=== PATIENT | female | born 1970 | race Caucasian/White ===

== ENCOUNTER 2020-03-02 12:03 | Emergency (ER) | payer MEDICARE, OTHER ==
[~2020-03-02] VITALS: Ht 170.2 cm; Wt 101.4 kg
[2020-03-02 14:29] VITALS: BP 147/78
== END 2020-03-02 14:31 | disposition home or self-care (01) ==
LOC: ED 14:12
DX: J45.901 Unspecified asthma with (acute) exacerbation (principal); J20.9 Acute bronchitis, unspecified; R06.02 Shortness of breath
CPT/HCPCS: 71045; 93005; 99283

== ENCOUNTER 2020-06-13 17:35 | Emergency (ER) | payer MEDICARE ==
[~2020-06-13] VITALS: Ht 170.2 cm; Wt 110.3 kg
[2020-06-13] MEDS ORDERED: PROPARACAINE OPHTH 0.5%, 15ML ONE (18:12)
[2020-06-13] MEDS ORDERED: FLUORESCEIN OPHTHALMIC 1 MG STRIP ONE ×2 (18:12)
--- NOTE | 2020-06-13 18:15 | NUR ---
PT AMBULATORY TO ROOM 20 W/ C/O BILAT EYE REDNESS/DRAINAGE. WAS SEEN BY TELEHEALTH MD WHO STATES THEY THOUGHT PT HAD PERIORBITAL CELLULITIS AND WAS TOLD TO COME TO ED. PT RESTING ON GURNEY. RUFF.
[2020-06-13 18:28] VITALS: BP 145/81
[2020-06-13] MEDS ORDERED: PROPARACAINE OPHTH 0.5%, 15ML EACHEYE ONE (18:30)
[2020-06-13] MEDS ORDERED: FLUORESCEIN OPHTHALMIC 1 MG STRIP EACHEYE ONE (18:30)
[2020-06-13] MEDS ORDERED: CIPROFLOXACIN OPHTH SOLN 0.3%, 5ML RIGHTEYE SCH (18:30)
--- NOTE | 2020-06-13 18:42 | NUR ---
YELLOW SLIP SENT TO PHARMACY FOR MEDS PER JUL.
== END 2020-06-13 19:27 | disposition home or self-care (01) ==
LOC: ED 19:01
DX: H10.33 Unspecified acute conjunctivitis, bilateral (principal); J45.909 Unspecified asthma, uncomplicated; M79.89 Other specified soft tissue disorders
CPT/HCPCS: 99283

== ENCOUNTER 2020-08-22 09:39 | Observation (INO) | payer MEDICARE ==
[~2020-08-22] VITALS: Ht 167.6 cm; Wt 118.6 kg
[~2020-08-22 09:39] MED LIST: DOCU-180 PO; Stool Softener PO
[2020-08-22 10:16] VITALS: BP 122/89
[2020-08-22 10:26] LABS: HCG UR SG 1.024 (1.003-1.030)
[2020-08-22] MEDS ORDERED: LACTATED RINGERS 1,000 ML IV SCH (10:30)
[2020-08-22] MEDS ORDERED: CHLORHEXIDINE 15 ML UDC PO ONE (10:30)
[2020-08-22] MEDS ORDERED: EPINEPHRINE 1 MG/ML, 1ML ONE (11:12)
[2020-08-22] MEDS ORDERED: BUPIVACAINE/PF 0.5% ONE (11:12)
[2020-08-22] MEDS ORDERED: MIDAZOLAM 1 MG/ML, 5ML ONE (11:36)
[2020-08-22] MEDS ORDERED: DEXAMETHASONE 4 MG/ML, 1ML ONE ×2 (11:58)
[2020-08-22] MEDS ORDERED: FENTANYL PF 250 MCG/5ML ONE (11:58)
[2020-08-22] MEDS ORDERED: CEFAZOLIN 1,000 MG ONE ×2 (11:59)
[2020-08-22] MEDS ORDERED: ROCURONIUM 10MG/ML,5ML ONE (12:50)
[2020-08-22] MEDS ORDERED: PROPOFOL 10 MG/ML, 20ML ONE (12:50)
[2020-08-22] MEDS ORDERED: LABETALOL 5MG/ML, 20ML IV PRN (13:00)
[2020-08-22] MEDS ORDERED: ACETAMINOPHEN 325 MG TABLET PO PRN (13:00)
[2020-08-22] MEDS ORDERED: MEPERIDINE/PF 25MG/0.5ML IVPush PRN (13:00)
[2020-08-22] MEDS ORDERED: LORazepam 2 MG/ML, 1ML IVPush PRN (13:00)
[2020-08-22] MEDS ORDERED: MIDAZOLAM 1 MG/ML, 2ML IV PRN (13:00)
[2020-08-22] MEDS ORDERED: PROMETHAZINE 25 MG/ML, 1ML IVPush PRN (13:00)
[2020-08-22] MEDS ORDERED: hydrALAzine 20 MG/ML, 1ML IV PRN (13:00)
[2020-08-22] MEDS ORDERED: ONDANSETRON 2MG/ML, 2ML IVPush PRN (13:00)
[2020-08-22] MEDS ORDERED: ACETAMINOPHEN 650 MG/20.3 ML UDC ONE (13:10)
[2020-08-22] MEDS ORDERED: MEPERIDINE/PF 25MG/ML,1ML ONE (13:10)
[2020-08-22] MEDS ORDERED: PROMETHAZINE 25 MG/ML, 1ML ONE (13:12)
[2020-08-22] MEDS ORDERED: FENTANYL PF 100 MCG/2ML ONE (13:28)
[2020-08-22] MEDS: FENTANYL PF 100 MCG/2ML IV PRN ×2 (13:30→13:40)
[2020-08-22] MEDS: CALCIUM CARBONATE 500 MG TAB.CHEW PO SCH ×2 (15:00→21:00)
[2020-08-22] MEDS ORDERED: ONDANSETRON 2MG/ML, 2ML IV PRN (15:00)
[2020-08-22] MEDS ORDERED: MEPERIDINE 50 MG TABLET PO PRN (15:00)
[2020-08-22] MEDS ORDERED: MEPERIDINE/PF 50 MG/ML ONE ×6 (15:04→23:56)
[2020-08-22] MEDS: MEPERIDINE/PF 25MG/0.5ML IV PRN ×5 (15:06→23:58)
[2020-08-22] MEDS ORDERED: ACETAMINOPHEN 650 MG SUPP PR ONE (18:30)
[2020-08-22 20:24] VITALS: BP 128/82
[2020-08-22] MEDS: CHOLECALCIFEROL 1,000 UNIT TABLET PO SCH (21:00)
[2020-08-22] MEDS: SODIUM CHLORIDE FLUSH 10ML SYR IVF SCH (21:00)
[2020-08-23 00:23] VITALS: BP 148/88
[2020-08-23] MEDS ORDERED: MEPERIDINE/PF 50 MG/ML ONE ×4 (02:15→11:32)
[2020-08-23] MEDS: MEPERIDINE/PF 25MG/0.5ML IV PRN ×4 (02:23→11:35)
[2020-08-23] MEDS: CALCIUM CARBONATE 500 MG TAB.CHEW PO SCH ×2 (03:00→08:04)
[2020-08-23 05:00] VITALS: BP 132/78
[2020-08-23] MEDS ORDERED: ACETAMINOPHEN 650 MG SUPP PR PRN (08:00)
[2020-08-23] MEDS: SODIUM CHLORIDE FLUSH 10ML SYR IVF SCH (08:03)
[2020-08-23] MEDS: CHOLECALCIFEROL 1,000 UNIT TABLET PO SCH (08:04)
[2020-08-23] MEDS ORDERED: LIDOCAINE 2% VISCOUS, 100ML MM PRN (08:30)
[2020-08-23 08:36] VITALS: BP 142/89
[2020-08-23 12:35] VITALS: BP 114/76
[2020-08-23] MEDS ORDERED: CARI350T PO (14:17)
[2020-08-23] MEDS ORDERED: ONDA4TAB13 PO (14:18)
[2020-08-23] MEDS ORDERED: LEVO50TA PO (14:19)
[2020-08-23] MEDS ORDERED: IBUP-1223 PO (14:20)
== END 2020-08-23 14:44 | disposition home or self-care (01) ==
LOC: OUT 09:39 → 4NE 14:25 → OUT 22:34 → 4NE 22:35 → DCLOUNGE 08-23 14:16
PROVIDERS: ADMIT Surgery; ATTEND Surgery
DX: C73 Malignant neoplasm of thyroid gland (principal); Z20.822 Contact with and (suspected) exposure to COVID-19; E28.2 Polycystic ovarian syndrome; Z79.899 Other long term (current) drug therapy
CPT/HCPCS: 36415; 60240; 81025; 82310; 83970; 88307; 96374; 96375; 96376; C1760; G0378; J0171; J0690; J1100; J2175; J2250; J2405; J2550; J2704; J3010; J7120; S0020; U0003

== ENCOUNTER 2020-10-04 13:39 | Emergency (ER) | payer MEDICARE ==
[~2020-10-04] VITALS: Ht 172.7 cm; Wt 111.9 kg
[~2020-10-04 13:39] MED LIST changes: +CARI350T PO; -DOCU-180 PO; +DOCU-183 PO; +IBUP-1223 PO; +LEVO50TA PO; +ONDA4TAB13 PO
--- NOTE | 2020-10-04 14:10 | NUR ---
PT brought back from triage with chief complaint of feeling poor, difficulty swallowing, sob since thyroidectomy. ERMD at bedside for eval
[2020-10-04 14:39] LABS: BASOPHILS % (AUTO) 1 % (0-1); EOSINOPHILS % (AUTO) 4 % (1-7); LYMPHOCYTES % (AUTO) 27 % (22-44); MEAN CORPUSCULAR HEMOGLOBIN 31.5 pg (27.0-34.8); MEAN CORPUSCULAR HGB CONC 33.9 g/dL (32.4-35.8); MEAN PLATELET VOLUME 8.9 fL (7.4-10.4); MONOCYTES % (AUTO) 8 % (2-9); NEUTROPHILS % (AUTO) 61 % (42-75); PLATELET COUNT 278 x10^3/uL (130-400); RED BLOOD COUNT 4.37 x10^6/uL (3.82-5.3); RED CELL DISTRIBUTION WIDTH 15.4 % (9.6-15.2)
[2020-10-04 14:43] LABS: MD NO
[2020-10-04 14:50] LABS: ALBUMIN 3.8 g/dL (3.4-5.0); ANION GAP 8 mmol/L (5-15); CALCIUM 9.6 mg/dL (8.5-10.1); CHLORIDE 105 mmol/L (98-107); CREATININE 1.34 mg/dL (0.55-1.02)
[2020-10-04 14:54] LABS: TROPONIN I < 0.015 ng/mL (0.000-0.045)
[2020-10-04 15:14] LABS: FREE T4 (FREE THYROXINE) 0.68 ng/dL (0.76-1.46)
--- NOTE | 2020-10-04 15:22 | NUR ---
PT RESTING IN BED, CALL LIGHT IN REACH
[2020-10-04 16:39] VITALS: BP 137/99
--- NOTE | 2020-10-04 16:39 | NUR ---
ERMD AT BEDSIDE TO DISCUSS POC
--- NOTE | 2020-10-04 17:00 | NUR ---
discharge instructions reviewed
== END 2020-10-04 17:52 | disposition home or self-care (01) ==
LOC: ED 14:20
DX: E89.0 Postprocedural hypothyroidism (principal); R94.31 Abnormal electrocardiogram [ECG] [EKG]; J45.909 Unspecified asthma, uncomplicated; Z85.850 Personal history of malignant neoplasm of thyroid
CPT/HCPCS: 36415; 71045; 80048; 82040; 84439; 84443; 84484; 85025; 93005; 99285